=== PATIENT | female | born 1970 | race Caucasian/White ===

== ENCOUNTER 2017-04-15 11:23 | Emergency (ER) | payer MEDICAID ==
[2017-04-15] MEDS ORDERED: PROMETHAZINE INJ 12.5 MG in SODIUM CHLORIDE 0.9% 50 ML IV STA (11:57)
[2017-04-15] MEDS ORDERED: LORazepam 2 MG/ML SYRINGE IVP STA ×2 (11:57→13:19)
[2017-04-15] MEDS ORDERED: SODIUM CHLORIDE 0.9% 1,000 ML IV ONE ×2 (11:57→13:19)
[2017-04-15] MEDS ORDERED: LORazepam 2 MG/ML SYRINGE ONE ×2 (12:05→13:21)
[2017-04-15] MEDS ORDERED: PROMETHAZINE 25 MG/1 ML VIAL ONE (12:05)
[2017-04-15 12:29] LABS: BASOPHILS % (AUTO) 0.1 %; HCT - HEMATOCRIT 41.5 % (37.0-47.0); HGB - HEMOGLOBIN 14.4 g/dL (12.0-16.0); LYMPHOCYTES # (AUTO) 0.6 10^3/uL (1.5-3.5); LYMPHOCYTES % (AUTO) 6.5 %; MEAN CORPUSCULAR HEMOGLOBIN 33.1 pg (27.0-31.0); MEAN CORPUSCULAR HGB CONC 34.7 g/dL (32.0-36.0); MEAN CORPUSCULAR VOLUME 95.3 fL (81.0-99.0); MEAN PLATELET VOLUME 7.3 fL (7.9-10.8); MONOCYTES # (AUTO) 0.6 10^3/uL (0.0-1.0); MONOCYTES % (AUTO) 6.5 %; NEUTROPHILS % (AUTO) 86.9 %; RED BLOOD COUNT 4.35 10^6/uL (4.20-5.40); RED CELL DISTRIBUTION WIDTH 13.4 % (12.0-15.0); UNCORRECTED WHITE BLOOD COUNT 9.2 x10^3/uL; WHITE BLOOD COUNT 9.2 x10^3/uL (4.8-10.8)
[2017-04-15 12:42] LABS: PARTIAL THROMBOPLASTIN TIME 23.6 secs (24.9-33.3)
[2017-04-15 12:49] LABS: ALBUMIN/GLOBULIN RATIO 1.2 (1.0-2.2); BILIRUBIN,TOTAL 1.5 mg/dL (0.2-1.0); BUN - BLOOD UREA NITROGEN 28 mg/dL (6-20); CALCIUM 9.8 mg/dL (8.5-10.3); CARBON DIOXIDE - CO2 20 mmol/L (21-32); CHLORIDE 94 mmol/L (101-111); CREATININE 1.1 mg/dL (0.4-1.0); GFR - MDRD 53 (>89); GLUCOSE 161 mg/dL (70-100); LIPASE 101 U/L (22-51); POTASSIUM 3.4 mmol/L (3.5-5.0); SODIUM 136 mmol/L (135-145); TOTAL PROTEIN 9.3 g/dL (6.7-8.2)
[2017-04-15] MEDS ORDERED: ONDANSETRON 4 MG/2 ML VIAL IVP STA (13:19)
[2017-04-15] MEDS ORDERED: ONDANSETRON 4 MG/2 ML VIAL ONE (13:21)
--- NOTE | 2017-04-15 13:58 | ED Physician Documentation ---
History of Present Illness - Stated complaint Stated Complaint: ETOH WITHDRAWL - Chief complaint Chief Complaint: General - History obtained from History obtained from: Patient - Additonal information Additional information: The patient is a 46-year-old female with a history of alcoholism, who has been trying to quit drinking. Her last alcoholic drink was 2 days ago. She presents now because of shakiness, anxiety, and vomiting which started yesterday and have been getting progressively worse. She reports mild headache. She denies fever, diarrhea, or dysuria. She denies history of similar symptoms in the past. She denies the use of other drugs except for occasional pot. Review of Systems Constitutional: reports: Myalgias. denies: Fever Ears: denies: Tinnitus/ringing Nose: denies: Congestion Throat: denies: Sore throat Cardiac: denies: Chest pain / pressure Respiratory: denies: Dyspnea, Cough GI: reports: Nausea, Vomiting. denies: Abdominal Pain, Diarrhea : denies: Dysuria Skin: denies: Rash Musculoskeletal: denies: Back pain Neurologic: reports: Headache, Other (Uncontrolled tremulousness.) PD PAST MEDICAL HISTORY - Past Medical History Cardiovascular: Hypertension Endocrine/Autoimmune: None - Present Medications Home Medications: Ambulatory Orders Medication Instructions Recorded Confirmed Lorazepam 1 mg PO Q6HR PRN #20 tablet 04/15/17 Lorazepam [Ativan] 1 mg PO PRN PRN 04/15/17 04/15/17 Promethazine [Phenergan] 25 - 50 mg PO Q6H PRN #10 tab 04/15/17 - Allergies Allergies/Adverse Reactions: Allergies Allergy/AdvReac Type Severity Reaction Status Date / Time No Known Drug Allergies Allergy Verified 04/15/17 12:29 - Social History Does the pt smoke?: No Does the pt drink ETOH?: Yes PD ED PE NORMAL - Vitals Vital signs reviewed: Yes (Borderline hypertension.) - General General: Alert and oriented X 3, Well developed/nourished, Other (Very tremulous.) - HEENT HEENT: Atraumatic, EOMI, Pharynx benign - Neck Neck: Supple, no meningeal sign, No adenopathy, No JVD - Cardiac Cardiac: RRR, No murmur - Respiratory Respiratory: No respiratory distress, Clear bilaterally - Abdomen Abdomen: Soft, Non tender, No organomegaly - Back Back: No CVA TTP - Derm Derm: No rash - Extremities Extremities: No edema, No calf tenderness / cord - Neuro Neuro: Alert and oriented X 3, No motor deficit, No sensory deficit Results - Vitals Vitals: Oxygen O2 Source Room air - EKG (time done) 13:33 Rate: Rate (enter#) (98) Rhythm: NSR [place]: Normal Intervals: Normal ND QRS: Normal Ischemia: Other (T wave flattening in anterolateral leads 1, aVL, and V4 through V6.) Compare to prior EKG: Old EKG unavailable Computer interpretation: Disagree with computer (Doubt anterolateral infarct, age indeterminate.) - Labs Labs: Laboratory Tests 04/15/17 04/15/17 04/15/17 12:00 12:18 12:18 WBC 9.2 RBC 4.35 Hgb 14.4 Hct 41.5 MCV 95.3 MCH 33.1 H MCHC 34.7 RDW 13.4 Plt Count 217 MPV 7.3 L Neut # 8.0 H Lymph # 0.6 L [place] # 0.6 Eos # 0.0 Baso # 0.0 Absolute Nucleated RBC 0.00 Nucleated RBCs 0.0 PT 11.0 INR 1.0 APTT 23.6 L Sodium Potassium Chloride Carbon Dioxide Anion Gap BUN Creatinine Estimated GFR (MDRD) Glucose Calcium Total Bilirubin AST ALT Alkaline Phosphatase Total Protein Albumin Globulin Albumin/Globulin Ratio Lipase Urine Opiates Screen NEGATIVE Ur Oxycodone Screen NEGATIVE Urine Methadone Screen NEGATIVE Ur Propoxyphene Screen NEGATIVE Ur Barbiturates Screen NEGATIVE Ur Tricyclics Screen NEGATIVE Ur Phencyclidine Scrn NEGATIVE Ur Amphetamine Screen NEGATIVE U Methamphetamines Scrn NEGATIVE U Benzodiazepines Scrn NEGATIVE Urine Cocaine Screen NEGATIVE U Cannabinoids Screen POSITIVE H Ethyl Alcohol 04/15/17 12:18 WBC RBC Hgb Hct MCV MCH MCHC RDW Plt Count MPV Neut # Lymph # [place] # Eos # Baso # Absolute Nucleated RBC Nucleated RBCs PT INR APTT Sodium 136 Potassium 3.4 L Chloride 94 L Carbon Dioxide 20 L Anion Gap 22.0 H BUN 28 H Creatinine 1.1 H Estimated GFR (MDRD) 53 L Glucose 161 H Calcium 9.8 Total Bilirubin 1.5 H AST 150 H ALT 105 H Alkaline Phosphatase 54 Total Protein 9.3 H Albumin 5.0 Globulin 4.3 H Albumin/Globulin Ratio 1.2 Lipase 101 H Urine Opiates Screen Ur Oxycodone Screen Urine Methadone Screen Ur Propoxyphene Screen Ur Barbiturates Screen Ur Tricyclics Screen Ur Phencyclidine Scrn Ur Amphetamine Screen U Methamphetamines Scrn U Benzodiazepines Scrn Urine Cocaine Screen U Cannabinoids Screen Ethyl Alcohol < 5.0 PD MEDICAL DECISION MAKING - ED course Complexity details: reviewed results, re-evaluated patient, considered differential, d/w patient ED course: The patient's presentation is significant for alcohol withdrawal syndrome, including tremulousness and vomiting. She was mildly tachycardic initially. Her abdomen was benign on examination. Her chemistry panel reveals mildly elevated liver enzymes with an AST 150, ALT 105, total bilirubin 1.5, and normal alkaline phosphatase of 54. Her lipase is mildly elevated at 101. BUN is elevated at 28, with a creatinine of 1.1. Treatment in the emergency department included administration of normal saline 2 L IV, Phenergan 12.5 mg IV, followed by Zofran 4 mg IV. Lorazepam 1 mg was administered IV 2. Following the above treatment the patient felt subjectively much improved. Her tremulousness resolved, as did her nausea. I discussed with her and her male chair car attendant the expected course of symptoms in alcohol withdrawal. She is being discharged with prescriptions for lorazepam and Phenergan. She plans to follow up with her primary physician this week. I discussed with them potentially worrisome signs or symptoms that should prompt reevaluation in the emergency department. Departure - Departure Disposition: 01 Home, Self Care Clinical Impression: Vomiting Alcohol withdrawal Qualifiers: Complication of substance-induced condition: with unspecified complication Qualified Code(s): F10.239 - Alcohol dependence with withdrawal, unspecified Condition: Stable Instructions: ED Withdrawal Alcohol Prescriptions: Lorazepam 1 mg PO Q6HR PRN #20 tablet PRN Reason: Anxiety Promethazine [Phenergan] 25 - 50 mg PO Q6H PRN #10 tab PRN Reason: Nausea / Vomiting Comments: Refrain from alcohol. Drink plenty of fluids. You can use lorazepam as prescribed if needed for shakiness or anxiety. You can use Phenergan as prescribed if needed for nausea. Follow up with your primary physician this week. Call to schedule an appointment. Return to the emergency department if you develop increasing abdominal pain, persistent vomiting, or otherwise worsening symptoms. Discharge Date/Time: 04/15/17 14:53
[2017-04-15 14:49] VITALS: BP 121/72
== END 2017-04-15 14:53 | disposition home or self-care (01) ==
LOC: ED 11:23
DX: F10.239 Alcohol dependence with withdrawal, unspecified (principal); R11.2 Nausea with vomiting, unspecified; I10 Essential (primary) hypertension
CPT/HCPCS: 36415; 80053; 80306; 80320; 83690; 85025; 85610; 85730; 93005; 96374; 96375; 96376; 99283; 99285; J2060

== ENCOUNTER 2019-01-24 09:25 | Emergency (ER) | payer MEDICAID ==
--- NOTE | 2019-01-24 09:30 | ED Physician Documentation ---
PD HPI OPHTHO - Stated complaint Stated Complaint: R EYE IRRITATION - History obtained from History obtained from: Patient - History of Present Illness Timing - onset: Yesterday Timing - details: Gradual onset, Still present (much worse today) Location: Right Quality / character: Burning, Aching Associated symptoms: Redness, Photophobia. No: Discharge, Matting, FB sensation Contributing factors: Wears contacts. No: Exposed to conjunctivitis, FB Similar symptoms before: Has not had sx before Recently seen: Not recently seen Review of Systems Constitutional: denies: Fever, Chills Eyes: reports: Photophobia, Irritation. denies: Decreased vision, Discharge Nose: denies: Rhinorrhea / runny nose, Congestion Throat: denies: Sore throat Respiratory: denies: Cough PD PAST MEDICAL HISTORY - Past Medical History Cardiovascular: Hypertension Endocrine/Autoimmune: None - Present Medications Home Medications: Ambulatory Orders Medication Instructions Recorded Confirmed LORazepam [Lorazepam] 1 mg PO Q6HR PRN #20 tablet 04/15/17 Lorazepam [Ativan] 1 mg PO PRN PRN 04/15/17 04/15/17 Promethazine [Phenergan] 25 - 50 mg PO Q6H PRN #10 tab 04/15/17 Hydrocodone/Acetaminophen [[place] 1 each PO Q6H PRN #15 tablet 01/24/19 5-325 Tablet] Ketorolac 0.45% Ophth Drops 2 drops LEFTEYE QID #1 bottle 01/24/19 [Acuvail] Sulfacetamide 10% Ophth Drops 2 drops OPTH Q3H #1 bottle 01/24/19 [Sulfamide 10% Ophth Drops] - Allergies Allergies/Adverse Reactions: Allergies Allergy/AdvReac Type Severity Reaction Status Date / Time No Known Drug Allergies Allergy Verified 01/24/19 09:33 - Social History Does the pt smoke?: No Does the pt drink ETOH?: Yes PD ED PE NORMAL - Vitals Vital signs reviewed: Yes - General General: Alert and oriented X 3, Well developed/nourished, Other (appears in pain) - HEENT HEENT: PERRL (light sensitive right eye directly, but not consensual. ), EOMI, Ears normal, Pharynx benign - Neck Neck: Supple, no meningeal sign, No adenopathy - Cardiac Cardiac: RRR, No murmur - Respiratory Respiratory: Clear bilaterally PD ED PE EXPANDED - Eyes Eyes: Injected conj/sclera, Anterior chambers clear, Normal fundi. No: Exudate, Corneal abrasion, Fluorescein uptake Results - Vitals Vitals: Vital Signs - 24 hr 01/24/19 09:31 Temperature 36.6 C Heart Rate 74 Respiratory 18 Rate Blood Pressure 148/105 H O2 Saturation 99 Oxygen O2 Source Room air Departure - Departure Disposition: Home, Self Care Clinical Impression: Keratitis Conjunctivitis Qualifiers: Conjunctivitis type: acute Acute conjunctivitis type: unspecified Laterality: right Qualified Code(s): H10.31 - Unspecified acute conjunctivitis, right eye Condition: Stable Record reviewed to determine appropriate education?: Yes Instructions: ED Conjunctivitis Nonspecific Follow-Up: Samir Izaguirre MD [Provider Admit Priv/Credential] - Prescriptions: Hydrocodone/Acetaminophen [[place] 5-325 Tablet] 1 each PO Q6H PRN #15 tablet PRN Reason: Pain Ketorolac 0.45% Ophth Drops [Acuvail] 2 drops LEFTEYE QID #1 bottle Sulfacetamide 10% Ophth Drops [Sulfamide 10% Ophth Drops] 2 drops OPTH Q3H #1 bottle Comments: Recheck your eye with an blasting entry specialist tomorrow, be at electromedical service engineer or grain trader. Will presume some infection and inflammation of the eye. At this point I do not see any ulcerations or abrasions on the eye surface. Will use ketorolac anti-inflammatory eyedrops and sulfa antibiotic eyedrops as directed. Use some naproxen or ibuprofen for pain and inflammation and add Tylenol or hydrocodone if needed for pain. You can use the numbing drops periodically as well for some of the relief. Be careful not to be outdoors or doing activity with the numbing drops as you will lose your protective reflex. Do not use the numbing drops more than a day without getting rechecked. This is just so you are not covering up a progression that is not getting checked. Discharge Date/Time: 01/24/19 10:24
[2019-01-24 09:35] VITALS: BP 148/105
[2019-01-24] MEDS ORDERED: IBUPROFEN 600 MG TABLET PO STA (10:13)
[2019-01-24] MEDS ORDERED: ACETAMINOPHEN 325 MG TABLET PO STA (10:13)
== END 2019-01-24 10:24 | disposition home or self-care (01) ==
LOC: ED 09:25
DX: H16.9 Unspecified keratitis (principal); H10.31 Unspecified acute conjunctivitis, right eye; I10 Essential (primary) hypertension
CPT/HCPCS: 99283; A9270

== ENCOUNTER 2019-11-28 09:14 | Outpatient (CLI) | payer MEDICAID | END 2019-11-28 09:15 | disposition critical access hospital (66) | LOC: EMS 09:14 | PROVIDERS: ATTEND Surgery | DX: R06.02 Shortness of breath (principal); R07.89 Other chest pain | CPT/HCPCS: A0425; A0429 ==

== ENCOUNTER 2019-11-28 09:40 | Emergency (ER) | payer MEDICAID ==
[2019-11-28] MEDS ORDERED: ONDANSETRON 4 MG/2 ML VIAL IVP STA (10:14)
[2019-11-28] MEDS ORDERED: ASPIRIN CHEW 81 MG TABLET PO STA (10:15)
[2019-11-28 10:22] LABS: BASOPHILS % (AUTO) 0.5 %; EOSINOPHILS % (AUTO) 0.2 %; HGB - HEMOGLOBIN 14.1 g/dL (12.0-16.0); LYMPHOCYTES # (AUTO) 1.3 10^3/uL (1.5-3.5); LYMPHOCYTES % (AUTO) 15.7 %; MEAN CORPUSCULAR HEMOGLOBIN 32.2 pg (27.0-31.0); MEAN CORPUSCULAR HGB CONC 32.9 g/dL (32.0-36.0); MEAN CORPUSCULAR VOLUME 97.9 fL (81.0-99.0); MEAN PLATELET VOLUME 9.1 fL (7.9-10.8); MONOCYTES # (AUTO) 0.5 10^3/uL (0.0-1.0); MONOCYTES % (AUTO) 5.5 %; NEUTROPHILS # (AUTO) 6.4 10^3/uL (1.5-6.6); NEUTROPHILS % (AUTO) 77.7 %; PLT - PLATELET COUNT 205 10^3/uL (130-450); RED BLOOD COUNT 4.38 10^6/uL (4.20-5.40); RED CELL DISTRIBUTION WIDTH 13.7 % (12.0-15.0); WHITE BLOOD COUNT 8.2 x10^3/uL (4.8-10.8)
--- NOTE | 2019-11-28 10:25 | ED Physician Documentation ---
History of Present Illness - Stated complaint Stated Complaint: SOA - Chief complaint Chief Complaint: Cardiac - Additonal information Additional information: This is a 49-year-old female with a history of of depression, presents with vomiting, Chest discomfort, and feeling anxious. Patient was at work, getting ready to milkshake, and she suddenly felt nauseated, she had episode of vomiting, and afterwards she felt short of breath and had chest discomfort. She tried to calm herself down, think it is might of been anxiety related, but the feeling persisted so EMS was called and they brought her here to the hospital. Her blood sugar was 68 in route. She currently states that her chest discomfort is mild, located over the mid chest, nonradiating. Her breathing feels much better than it did, but she still does have slight shortness of breath. No cough, no fever. No abdominal pain. She has had a hysterectomy, denies other abdominal surgeries. Review of Systems Constitutional: denies: Fever Nose: denies: Rhinorrhea / runny nose Cardiac: reports: Chest pain / pressure Respiratory: reports: Dyspnea GI: reports: Nausea. denies: Abdominal Pain : denies: Dysuria Skin: denies: Rash Musculoskeletal: denies: Neck pain Neurologic: denies: Syncope Psychiatric: reports: Anxiety Immunocompromised: denies: Immunocompromised PD PAST MEDICAL HISTORY - Past Medical History Cardiovascular: Hypertension Respiratory: None Neuro: None Endocrine/Autoimmune: None GI: None CAFE LEAD: None : None HEENT: None Psych: Depression, Anxiety Musculoskeletal: None Derm: None - Past Surgical History Past Surgical History: Yes Ortho: Other /CAFE LEAD: Tubal ligation, Hysterectomy - Present Medications Home Medications: Ambulatory Orders Medication Instructions Recorded Confirmed LORazepam [Lorazepam] 1 mg PO Q6HR PRN #20 tablet 04/15/17 Lorazepam [Ativan] 1 mg PO PRN PRN 04/15/17 04/15/17 Promethazine [Phenergan] 25 - 50 mg PO Q6H PRN #10 tab 04/15/17 Hydrocodone/Acetaminophen [[place] 1 each PO Q6H PRN #15 tablet 01/24/19 5-325 Tablet] Ketorolac 0.45% Ophth Drops 2 drops LEF[place] QID #1 bottle 01/24/19 [Acuvail] Sulfacetamide 10% Ophth Drops 2 drops OPTH Q3H #1 bottle 01/24/19 [Sulfamide 10% Ophth Drops] Ondansetron Odt [Zofran] 4 mg TL Q6H PRN #10 tablet 11/28/19 - Allergies Allergies/Adverse Reactions: Allergies Allergy/AdvReac Type Severity Reaction Status Date / Time No Known Drug Allergies Allergy Verified 11/28/19 09:54 - Social History Does the pt smoke?: No Smoking Status: Former smoker Does the pt drink ETOH?: Yes ETOH Use: Wine Does the pt have substance abuse?: Yes Substance Use and Type: Marijuana - Immunizations Immunizations are current?: No - POLST Patient has POLST: No PD ED PE NORMAL - Vitals Vital signs reviewed: Yes - General General: Alert and oriented X 3, Other (Slightly uncomfortable and anxious appearing, but nontoxic.) - HEENT HEENT: Atraumatic, PERRL - Neck Neck: Supple, no meningeal sign - Cardiac Cardiac: RRR, No murmur - Respiratory Respiratory: No respiratory distress, Clear bilaterally - Abdomen Abdomen: Normal bowel sounds, Soft, Other (Nontender to deep palpation in all 4 quadrants. Specifically no right upper quadrant or right lower quadrant tenderness. No guarding.) - Derm Derm: Warm and dry - Extremities Extremities: No deformity - Neuro Neuro: Alert and oriented X 3 - Psych Psych: Normal mood, Normal affect Results - Vitals Vitals: Vital Signs - 24 hr 11/28/19 11/28/19 11/28/19 09:54 10:10 11:49 Temperature 37.1 C 37.1 C Heart Rate 84 109 H 94 Respiratory 22 22 19 Rate Blood Pressure 116/103 H 137/86 H O2 Saturation 99 97 96 11/28/19 14:03 Temperature 36.6 C Heart Rate 95 Respiratory 18 Rate Blood Pressure 129/89 H O2 Saturation 97 Oxygen O2 Source Room air - EKG (time done) 10:29 Other comments: Other comments (Rate 82, rhythm sinus, with some motion artifact. There is no ST segment elevation or depression. No abnormal T wave inversions. QTC 475) - Labs Labs: Laboratory Tests 11/28/19 11/28/19 11/28/19 10:15 10:20 10:20 WBC 8.2 RBC 4.38 Hgb 14.1 Hct 42.9 MCV 97.9 MCH 32.2 H MCHC 32.9 RDW 13.7 Plt Count 205 MPV 9.1 Neut # (Auto) 6.4 Lymph # (Auto) 1.3 L [place] # (Auto) 0.5 Eos # (Auto) 0.0 Baso # (Auto) 0.0 Absolute Nucleated RBC 0.00 Nucleated RBC % 0.0 D-Dimer 249.8 VBG pH VBG pCO2 VBG pO2 VBG HCO3 VBG Total CO2 VBG O2 Saturation VBG Base Excess Sodium 141 Potassium 3.7 Chloride 98 L Carbon Dioxide 18 L Anion Gap 25.0 H BUN 14 Creatinine 0.9 Estimated GFR (MDRD) 66 L Glucose 79 Calcium 9.0 Total Bilirubin 0.9 AST 258 H ALT 217 H Alkaline Phosphatase 61 Troponin I High Sens Total Protein 8.2 Albumin 4.7 Globulin 3.5 Albumin/Globulin Ratio 1.3 Lipase 27 11/28/19 11/28/19 11/28/19 10:20 12:39 12:39 WBC RBC Hgb Hct MCV MCH MCHC RDW Plt Count MPV Neut # (Auto) Lymph # (Auto) [place] # (Auto) Eos # (Auto) Baso # (Auto) Absolute Nucleated RBC Nucleated RBC % D-Dimer VBG pH 7.443 H VBG pCO2 38.0 L VBG pO2 28.9 VBG HCO3 25.4 VBG Total CO2 26.6 VBG O2 Saturation 54.8 L VBG Base Excess 1.5 Sodium 138 Potassium 4.0 Chloride 97 L Carbon Dioxide 23 Anion Gap 18.0 H BUN 14 Creatinine 0.8 Estimated GFR (MDRD) 76 L Glucose 126 H Calcium 8.8 Total Bilirubin AST ALT Alkaline Phosphatase Troponin I High Sens 4.4 Total Protein Albumin Globulin Albumin/Globulin Ratio Lipase - Rads (name of study) CXR Radiology: Other (No acute cardiopulmonary process) PD MEDICAL DECISION MAKING - ED course Complexity details: considered differential (ACS, anxiety,, gastritis, cholecystitis, pneumonia, pneumothorax, dysrhythmia, PE, pancreatitis) ED course: On arrival patient is well-appearing, her vital signs are unmarkable. Her physical exam is also reassuring, she has no abdominal tenderness. Her labs reveal no leukocytosis, normal hemoglobin. Her CMP does show a mild metabolic acidosis with a CO2 of 18, her anion gap is also elevated at 25, and her AST and ALT are elevated. I spoke with the patient, who is drinking about a bottle of hard alcohol daily and has been doing so for quite a while. The pattern of her LFT elevations is consistent with alcoholic hepatitis, and has been elevated to similar levels in the past. She has no bilirubin elevation, alk phos is normal. She has no right upper quadrant tenderness, and I do not see signs of acute hepatobiliary process, no signs of cholecystitis today. no history of acetaminophen overdose. Regarding her chest pain, this resolved while she was in the emergency department, her high-sensitivity troponin is negative, her EKG shows no signs of ischemia or dysrhythmia. PE was considered, overall she is low risk for PE but she did have one isolated episode of tachycardia and she is 49 years old so a d-dimer was obtained and this is negative. Her chest pain shortness of breath completely resolved, further arguing against any severe acute cardiopulmonary process. I have a high suspicion that her symptoms were least in part alcoholic gastritis, I did have concern also for alcoholic ketoacidosis, I repeated her BMP and also added a blood gas, and the VBG shows no acidosis, which is 7.44, and her chemistry panel shows an improving anion gap with now normalized carbon dioxide level. Given that she is now asymptomatic, she is appears appropriate for outpatient follow-up, I recommend that she stop drinking, I reviewed return precautions with any worsening chest pain, shortness of breath or other concerning symptoms. Patient agrees and appreciates the concern, she was discharged home in good condition Departure - Departure Disposition: 01 Home, Self Care Clinical Impression: Vomiting Qualifiers: Vomiting type: unspecified Vomiting Intractability: non-intractable Nausea presence: with nausea Qualified Code(s): R11.2 - Nausea with vomiting, unspecified Condition: Good Instructions: ED Nausea Vomiting Prescriptions: Ondansetron Odt [Zofran] 4 mg TL Q6H PRN #10 tablet PRN Reason: Nausea / Vomiting Comments: You were seen today for nausea and shortness of breath. Your labs overall look reassuring, however there are signs of inflammation to your liver, which is likely from your drinking. I think is possible that your drinking could be causing inflammation of your stomach as well. Please stop drinking, and follow- up with your primary care provider on your liver enzymes. These should be rechecked. I prescribing you nausea medication, but if you are having persistent vomiting, recurrence of your chest pain, or any other concerning symptoms, return to the emergency department. Discharge Date/Time: 11/28/19 14:04
[2019-11-28 10:37] LABS: ALBUMIN 4.7 g/dL (3.2-5.5); ALBUMIN/GLOBULIN RATIO 1.3 (1.0-2.2); BILIRUBIN,TOTAL 0.9 mg/dL (0.2-1.0); CREATININE 0.9 mg/dL (0.4-1.0); TOTAL PROTEIN 8.2 g/dL (6.7-8.2)
--- NOTE | 2019-11-28 10:55 | XRAY Report ---
Reason: Chest Pain Procedure Date: 11/28/2019 Accession Number: [id number] / [id number] Procedure: XR - Chest 1 View X-Ray CPT Code: 18092 Final Report FULL RESULT: EXAM: CHEST RADIOGRAPHY EXAM DATE: 11/28/2019 10:18 AM. CLINICAL HISTORY: Chest Pain. COMPARISON: None. TECHNIQUE: 1 view. FINDINGS: Lungs/Pleura: No focal opacities. No effusions. Mediastinum: Within exam limitations, the cardiomediastinal contour is normal. Other: None. IMPRESSION: No acute radiographic cardiopulmonary process RADIA
[2019-11-28] MEDS ORDERED: THIAMINE 100 MG TABLET PO STA (11:44)
[2019-11-28] MEDS ORDERED: FAMOTIDINE 20 MG/2 ML VIAL IVP STA (11:44)
[2019-11-28] MEDS ORDERED: FOLIC ACID 1 MG TABLET PO SCH (12:00)
[2019-11-28 12:52] LABS: VBG BASE EXCESS 1.5 mmol/L (-2 - +2); VBG PH 7.443 (7.31-7.41); VBG PO2 28.9 mmHg (25-47); VBG TOTAL CO2 26.6 mmol/L (24-29)
[2019-11-28 13:00] LABS: CALCIUM 8.8 mg/dL (8.5-10.3); CREATININE 0.8 mg/dL (0.4-1.0)
[2019-11-28 14:04] VITALS: BP 129/89
== END 2019-11-28 14:04 | disposition home or self-care (01) ==
LOC: EDUNIT# → ED 09:40
DX: R11.2 Nausea with vomiting, unspecified (principal); R00.0 Tachycardia, unspecified; R07.9 Chest pain, unspecified; R74.8 Abnormal levels of other serum enzymes; I10 Essential (primary) hypertension; Z87.891 Personal history of nicotine dependence
CPT/HCPCS: 36415; 71045; 80048; 80053; 82803; 83690; 84484; 85025; 85379; 93005; 96374; 96375; 99284; A9270

== ENCOUNTER 2020-11-22 10:20 | Outpatient (CLI) | payer MEDICAID | END 2020-11-22 10:21 | disposition left against medical advice (07) | LOC: EMS 10:20 | PROVIDERS: ATTEND Surgery | DX: R46.89 Other symptoms and signs involving appearance and behavior (principal) ==